=== PATIENT | female | born 1935 | race Hispanic/Latino ===

== ENCOUNTER 2024-01-01 05:03 | Observation (INO) | payer OTHER, MEDICARE ==
[2023-12-27 11:53] LABS: BASOPHILS # (AUTO) 0.04 K/uL (0.00-0.20); BASOPHILS % (AUTO) 0.6 % (0.0-5.0); EOSINOPHILS # (AUTO) 0.12 K/uL (0.00-0.70); EOSINOPHILS % (AUTO) 1.7 % (0.0-8.0); HEMATOCRIT 39.3 % (36-48); IMMATURE GRANULOCYTE ABSOLUTE 0.01 K/uL (0-1); LYMPHOCYTES # (AUTO) 1.4 K/uL (1.0-4.8); LYMPHOCYTES % (AUTO) 19.5 % (21.0-51.0); MEAN CORPUSCULAR HEMOGLOBIN 28.5 pg (27.0-33.0); MEAN CORPUSCULAR HGB CONC 32.3 g/dL (32.0-36.0); MEAN CORPUSCULAR VOLUME 88.1 fL (79-99); MONOCYTES # (AUTO) 0.6 K/uL (0.1-1.0); MONOCYTES % (AUTO) 7.8 % (3.0-13.0); NEUTROPHILS # (AUTO) 4.9 K/uL (1.8-7.7); NEUTROPHILS % (AUTO) 70.3 % (40.0-77.0); PLATELET COUNT (AUTO) 189 K/uL (130-400); RED BLOOD CELL COUNT(AUTO) 4.46 MIL/uL (4.00-5.50); RED CELL DISTRIBUTION WIDTH 13.7 % (11.0-15.5)
[2023-12-27 12:10] VITALS: BP 190/71; PULSE 56; RESP 18
[2023-12-27 12:18] LABS: INR 0.95 (0.85-1.15); PROTHROMBIN TIME 11.1 SEC (9.6-11.6)
[2023-12-27 12:20] LABS: ALBUMIN 3.9 g/dL (3.5-5.0); BILIRUBIN,TOTAL 0.7 mg/dL (0.2-1.0); PARTIAL THROMBOPLASTIN TIME 29.7 SEC (26.3-35.5); POTASSIUM 3.9 mmol/L (3.5-5.1)
[2024-01-01] VITALS (29 sets, daily range): BP systolic 121–188; BP diastolic 42–78; PULSE 54–76; RESP 13–18; O2SAT 97–99
[~2024-01-01] VITALS: Ht 157.5 cm; Wt 69.4 kg
[~2024-01-01 05:03] MED LIST: ACET-2123 PO; ALLO100T PO; CHLO25TA3 PO; CHOL-34 PO; CYAN-106 PO; FAMO40TA7 PO; OLME40TA18 PO; PRAV40TA3 PO
[2024-01-01] MEDS: LACTATED RINGERS 1000ML 1,000 ML IV ONE (05:47)
[2024-01-01] MEDS ORDERED: ONDANSETRON 4MG INJ ONE (06:32)
[2024-01-01] MEDS ORDERED: SUCCINYLCHOLINE CHLORIDE 20 MG/ML 10 ML VIAL ONE (06:32)
[2024-01-01] MEDS ORDERED: PROPOFOL 10 MG/ML 20ML VIAL IV ONE (06:32)
[2024-01-01] MEDS ORDERED: LIDOCAINE PF 100MG/5ML (2%) SYRINGE 5ML ONE (06:32)
[2024-01-01] MEDS ORDERED: NEOSTIGMINE METHYLSULFATE 1MG/ML IV ONE (06:32)
[2024-01-01] MEDS ORDERED: GLYCOPYRROLATE 0.2 MG/ML 5 ML VIAL ONE (06:32)
[2024-01-01] MEDS ORDERED: DEXAMETHASONE SOD PHOSPHATE 10MG/ML 1ML VIAL ONE (06:32)
[2024-01-01] MEDS ORDERED: MIDAZOLAM HCL 1 MG/ML 2ML VIAL ONE ×2 (06:33→07:43)
[2024-01-01] MEDS ORDERED: ROCURONIUM BROMIDE 10MG/1ML 5ML VL ONE (06:33)
[2024-01-01] MEDS ORDERED: FENTANYL CITRATE PF 50 MCG/1 ML 2ML VIAL ONE ×2 (06:34→08:26)
[2024-01-01] MEDS ORDERED: 0.9%NACL 48.45 ML, ROPIVACAINE 0.5% 49.25ML, EPINEPH 0.5MG KETOROLAC 30MG,CLONIDINE 80MCG IV PRN (07:00)
[2024-01-01] MEDS ORDERED: CEFAZOLIN SODIUM 1 GM VIAL ONE ×2 (07:15→07:35)
[2024-01-01] MEDS ORDERED: GENTAMICIN SULFATE 80 MG/2 ML VIAL ONE (07:15)
[2024-01-01] MEDS ORDERED: TRANEXAMIC ACID 1000MG/10ML ONE (07:15)
[2024-01-01] MEDS: TRANEXAMIC ACID 1000MG/10ML IV ONE (07:17)
[2024-01-01] MEDS ORDERED: DIPHENHYDRAMINE HCL 25 MG CAPSULE PO SCH (11:30)
[2024-01-01] MEDS ORDERED: BENZOCAINE/MENTH/CETYLPYRD CL 1 EACH LOZENGE MM PRN (11:30)
[2024-01-01] MEDS ORDERED: ONDANSETRON 4MG INJ IVP PRN (11:30)
[2024-01-01] MEDS ORDERED: MAG/ALUM/SIMETH 30 ML UDCUP PO PRN (11:30)
[2024-01-01] MEDS ORDERED: DIPHENHYDRAMINE HCL 25 MG CAPSULE PO PRN (11:30)
[2024-01-01] MEDS ORDERED: ACETAMINOPHEN 325 MG TAB PO PRN ×2 (11:30)
[2024-01-01] MEDS ORDERED: DIPHENOXYLATE HCL/ATROPINE 2.5/0.025 MG TAB PO PRN (11:30)
[2024-01-01] MEDS ORDERED: ACETAMINOPHEN 325 MG TAB PO SCH ×2 (11:30→12:00)
[2024-01-01] MEDS ORDERED: HYDROCODONE/ACETAMINOPHEN 5/325 MG TAB PO PRN (11:30)
[2024-01-01] MEDS ORDERED: ACETAMINOPHEN WITH CODEINE 1 TAB TAB PO PRN (11:30)
[2024-01-01] MEDS ORDERED: DiphenhydrAMINE HCL 50 MG/ML VIAL IM PRN (11:30)
[2024-01-01] MEDS ORDERED: PHARMACY COMMUNICATION MISC SCH (12:00)
[2024-01-01] MEDS: HYDROMORPH /0.9% NACL/PF PCA 50 ML IV PRN (12:44)
[2024-01-01] MEDS: CLINDAMYCIN IVPB 900MG/50ML 50 ML IV ONE (12:56)
[2024-01-01] MEDS: CLINDAMYCIN IVPB 900MG/50ML IV SCH (14:25)
[2024-01-01] MEDS: 0.9%NACL 1000ML 1,000 ML IV SCH (14:26)
[2024-01-01] MEDS: TRAMADOL HCL 50 MG TABLET PO PRN (21:26)
[2024-01-02] VITALS (9 sets, daily range): BP systolic 137–169; BP diastolic 46–71; PULSE 61–99; RESP 16–20; O2SAT 95–96
[2024-01-02 03:53] LABS: HEMATOCRIT 31.5 % (36-48); MEAN CORPUSCULAR HGB CONC 32.7 g/dL (32.0-36.0); MEAN CORPUSCULAR VOLUME 88.7 fL (79-99); RED BLOOD CELL COUNT(AUTO) 3.55 MIL/uL (4.00-5.50); RED CELL DISTRIBUTION WIDTH 13.4 % (11.0-15.5); WHITE BLOOD COUNT (AUTO) 15.1 K/uL (4.8-10.8)
[2024-01-02 04:12] LABS: CREATININE 0.9 mg/dL (0.5-1.5); POTASSIUM 3.9 mmol/L (3.5-5.1)
[2024-01-02] MEDS: ALLOPURINOL 100 MG TABLET PO SCH (09:14)
[2024-01-02] MEDS: RIVAROXABAN 10 MG TABLET PO SCH (09:14)
[2024-01-03 03:58] LABS: BASOPHILS # (AUTO) 0.01 K/uL (0.00-0.20); BASOPHILS % (AUTO) 0.1 % (0.0-5.0); EOSINOPHILS # (AUTO) 0.02 K/uL (0.00-0.70); EOSINOPHILS % (AUTO) 0.3 % (0.0-8.0); IMMATURE GRANULOCYTE ABSOLUTE 0.04 K/uL (0-1); LYMPHOCYTES # (AUTO) 0.7 K/uL (1.0-4.8); LYMPHOCYTES % (AUTO) 9.5 % (21.0-51.0); MEAN CORPUSCULAR HEMOGLOBIN 28.8 pg (27.0-33.0); MEAN CORPUSCULAR HGB CONC 32.4 g/dL (32.0-36.0); MONOCYTES # (AUTO) 0.8 K/uL (0.1-1.0); MONOCYTES % (AUTO) 10.8 % (3.0-13.0); NEUTROPHILS # (AUTO) 5.9 K/uL (1.8-7.7); NEUTROPHILS % (AUTO) 78.8 % (40.0-77.0); PLATELET COUNT (AUTO) 118 K/uL (130-400); RED BLOOD CELL COUNT(AUTO) 3.26 MIL/uL (4.00-5.50); RED CELL DISTRIBUTION WIDTH 13.7 % (11.0-15.5); WHITE BLOOD COUNT (AUTO) 7.5 K/uL (4.8-10.8)
[2024-01-03 04:00] VITALS: BP 157/65; PULSE 92; RESP 17
[2024-01-03 04:22] LABS: ALBUMIN 2.9 g/dL (3.5-5.0); BILIRUBIN,TOTAL 0.8 mg/dL (0.2-1.0); CREATININE 0.8 mg/dL (0.5-1.5); MAGNESIUM 1.3 mg/dL (1.80-2.40); POTASSIUM 3.7 mmol/L (3.5-5.1); TOTAL PROTEIN, SERUM 5.6 g/dL (6.0-8.3)
[2024-01-03 08:24] VITALS: BP 165/60; PULSE 83; RESP 16
[2024-01-03 08:41] VITALS: O2SAT 99
[2024-01-03] MEDS: LACTULOSE 20 GM/30 ML UDCUP PO PRN (10:31)
[2024-01-03 11:19] VITALS: BP 146/64; PULSE 86; RESP 16
== END 2024-01-03 16:15 ==
LOC: DAH 05:03 → DAHIP 05:04 → 4CH 11:15
PROVIDERS: ADMIT Orthopaedic Surgery; ATTEND Orthopaedic Surgery
DX: M17.12 Unilateral primary osteoarthritis, left knee (principal); M21.062 Valgus deformity, not elsewhere classified, left knee; I25.10 Atherosclerotic heart disease of native coronary artery without angina pectoris; K21.9 Gastro-esophageal reflux disease without esophagitis; E78.5 Hyperlipidemia, unspecified; I13.0 Hypertensive heart and chronic kidney disease with heart failure and stage 1 through stage 4 chronic kidney disease, or unspecified chronic kidney disease; I50.32 Chronic diastolic (congestive) heart failure; N18.30 Chronic kidney disease, stage 3 unspecified; I70.8 Atherosclerosis of other arteries; Z90.710 Acquired absence of both cervix and uterus; Z95.1 Presence of aortocoronary bypass graft; Z86.2 Personal history of diseases of the blood and blood-forming organs and certain disorders involving the immune mechanism; Z88.0 Allergy status to penicillin
CPT/HCPCS: 80053 ×2; 85025 ×2; 85610; 85730; 36415 ×3; 71046; 93005; 87641; 27447; 96365; 96366 ×3; 96368; 97161; 97012; 97116 ×5; 97530 ×11; 80048; 85027; 83735; A6260; G0378 ×48; A4510; A4663; J7120 ×2; A4215 ×2; A4649 ×4; J3010 ×2; J0690 ×2; J3490 ×6; J1100; J0330; J2001; J1580; J2250 ×2; J2704; J2405; J2710; A6223; A4930; C1763 ×2; C1776; A5120; A4223; A4222; A4221; A6450; J7030

== ENCOUNTER 2024-04-02 10:03 | Emergency (ER) | payer OTHER, MEDICARE ==
[~2024-04-02] VITALS: Ht 160 cm; Wt 65.3 kg
[2024-04-02] MEDS: ACETAMINOPHEN 325 MG TAB PO STA (11:25)
[2024-04-02 11:57] VITALS: BP 152/48; PULSE 63; RESP 17; O2SAT 98
== END 2024-04-02 12:01 | disposition home or self-care (01) ==
LOC: EDH 10:03
DX: M25.562 Pain in left knee (principal); E78.00 Pure hypercholesterolemia, unspecified; I10 Essential (primary) hypertension; Z88.0 Allergy status to penicillin; Z90.49 Acquired absence of other specified parts of digestive tract; Z95.1 Presence of aortocoronary bypass graft
CPT/HCPCS: 73562